=== PATIENT | female | born 1995 | race Two or more races ===

== ENCOUNTER 2020-06-13 17:02 | Emergency (ER) | payer OTHER ==
--- OUTSIDE RECORDS SUMMARY | 2020-06-13 17:05 | XMS ---
:1995 Author Organization [facility] Care Team Providers Name Role Phone DIAZ BOWERS Unavailable Unavailable ZUNASSIGNED Unavailable Unavailable ARAYA, REBECCA Unavailable Unavailable Araya, Rebecca Unavailable Unavailable Araya, Rebecca Unavailable Unavailable Araya, Rebecca Unavailable Unavailable Araya, Rebecca Unavailable Unavailable [email or web address],, [id number] Unavailable Unavailable Re-disclosure Warning The records that you are about to access may contain information from federally- assisted alcohol or drug abuse programs. If such information is present, then the following federally mandated warning applies: This information has been disclosed to you from records protected by federal confidentiality rules (42 CFR part 2). The federal rules prohibit you from making any further disclosure of this information unless further disclosure is expressly permitted by the written consent of the person to whom it pertains or as otherwise permitted by 42 CFR part 2. A general authorization for the release of medical or other information is NOT sufficient for this purpose. The Federal rules restrict any use of the information to criminally investigate or prosecute any alcohol or drug abuse patient.The records that you are about to access may contain highly sensitive health information, the redisclosure of which is protected by Article 27-F of the [facility] Public Health law. If you continue you may haveaccess to information: Regarding HIV / AIDS; Provided by facilities licensed or operated by the [facility] Office of Mental Health; or Provided by the [facility] Office for People With Developmental Disabilities. If such information is present, then the following [facility] mandated warning applies: This information has been disclosed to you from confidential records which are protected by state law. State law prohibits you from making any further disclosure of this information without the specific written consent of the person to whom it pertains, or as otherwise permitted by law. Any unauthorized further disclosure in violation of state law may result in a fine or halfway sentence or both. A general authorization for the release of medical or other information is NOT sufficient authorization for further disclosure. Family History Family Member Family Member Family Member Date of Description Data Source(s) Name Gender Status Status Unknown Female Diagnosis 03/19/2018 [facility] ([facility] 12:00:[address] [facility] EDT Center) Encounters Encounter Providers Location Date Indications Data Source(s ) Outpatient Attender: DIAZ Martinez 06/11/2020 [facility] MENLAAdmitter: 04:48:00 Medical Ce nter DIAZ EDT MENLAReferrer: DIAZ BOWERS Outpatient Attender: 06/11/2020 [facility] ZUNASSIGNEDAdmit 03:43:00 [facility] Center ter: PM EDT ZUNASSIGNEDRefer rer: [id number] ZUNASSIGNED@, Outpatient Admitter: [id number] 06/11/2020 [facility] ZUNASSIGNED@,Ref 12:00:00 Medical Center errer: [id number] AM EDT ZUNASSIGNED@, Outpatient 03/11/2020 [facility] 04:28:00 Medical Theresa PM EDT Outpatient Attender: REBECCA Martinez 03/11/2020 [facility] MEJIAAdmitter: 03:22:00 Medical Ce nter REBECCA EDT MEJIAReferrer: REBECCA ARAYA OutpatientOFFICE/OUTP Attender: [facility] 03/11/2020 [facility] ([facility] VISIT, EST Marshal 03:22:00 [facility] EDT - Center) 03/11/2020 03:22:00 PM EDT Outpatient 03/11/2020 [facility] 12:00:00 Medical Center AM EDT Outpatient Attender: REBECCA Martinez 03/02/2020 [facility] MEJIAAdmitter: 03:13:00 Medical Ce nter REBECCA PM EDT MEJIAReferrer: REBECCA ARAYA OutpatientWell Visit, Attender: Rebecca [facility] 03/02/2020 [facility] ([facility]18-39[facility] Araya 03:13:00 [facility] EDT - Center) 03/02/2020 03:13:00 PM EDT Outpatient 03/02/2020 [facility] 10:13:00 Medical Center AM EDT Outpatient 03/02/2020 [facility] 12:00:00 [facility] AM EDT Medications Medication Brand Start Product Dose Route [facility] Indications Reaction Description Data Name Date Form Instructions Instructions Source(s) multivitami multiv take 1 [facility] n tablet itamin 2020 tablet by (Elie nt 12:00: oral route [facility] 00 AM every day Medical EDT with food Center) Ibuprofen ibupro .00 ORAL active take 1 NE XTGEN 400 MG Oral fen 2020 {tbl} tablet by (S aint Tablet 400 mg 12:00: oral route [facility] ibuprofen tablet 00 AM every 4 - 6 Medical 400 mg EDT hours as Center) tablet needed Insurance Providers Payer name Policy type Policy ID Covered Covered republican's Policy P abisai / Coverage republican ID relationship to Carmichael Inf ormation type carmichael [facility]LY [facility] [id number] 600 HEALTH NON CAP K[place] W [id number] 01 [id number] 600 CARE [place] W [id number] 01 [id number] 600 CARE [place] W [id number] Problems, Conditions, and Diagnoses Code Display Name Description Problem Type Effective Data Dates Source(s) Z20.828 Contact with and CONTACT W AND Diagnosis 03/11/2020 [facility] (suspected) exposure EXPOSURE TO OTH 03:22:00 P M Lela to other viral VIRAL COMMUNICABLE EDT [facility] communicable DISEASES Center diseases Z71.82 Exercise counseling EXERCISE COUNSELING Diagnosis 020 [facility] 03:22:00 PM [facility] Z71.3 Dietary counseling DIETARY COUNSELING Diagnosis 0 [facility] and surveillance AND SURVEILLANCE 03:22:00 PM [facility] Center Z68.22 Body mass index BODY MASS INDEX Diagnosis 03/11/2020 Andrés t (BMI) 22.0-22.9, (BMI) 22.0-22.9, 03:22:00 PM [facility] adult ADULT [facility] Z03.89 Encounter for ENCNTR FOR OBS FOR Diagnosis 03/11/2020 Elie nt observation for OTH SUSPECTED 03:22:00 PM Anthony hs other suspected DISEASES AND COND EDT Id dical diseases and RULED OUT Center conditions ruled out D64.9 Anemia, unspecified ANEMIA, UNSPECIFIED Diagnosis 020 [facility] 03:22:00 PM [facility] Z11.4 Encounter for ENCOUNTER FOR Diagnosis 03/02/2020 [facility] screening for human SCREENING FOR HUMAN 03:13:0 0 PM [facility] immunodeficiency IMMUNODEFICIENCY EDT Id dical virus [HIV] VIRUS Theresa J02.9 Acute pharyngitis, ACUTE PHARYNGITIS, Diagnosis 0 [facility] unspecified UNSPECIFIED 03:13:00 PM [facility] Z00.00 Encounter for ENCNTR FOR GENERAL Diagnosis 03/02/2020 Elie nt general adult ADULT MEDICAL EXAM 03:13:00 PM [facility] medical examination W/O ABNORMAL EDT Med ical without abnormal FINDINGS Center findings Surgeries/Procedures Procedure Description Date Indications Data Source(s) OFFICE/OUTPATIENT VISIT, 03/11/2020 [facility] ([facility] EST 12:00:00 AM EDT [facility] - 03/11/2020 Theresa) 12:00:00 AM EDT Well Visit, 03/02/2020 [facility] ([facility] Est,18-39years 12:00:[address] [facility] 03/02/2020 Theresa) 12:00:00 AM EDT ROUTINE VENIPUNCTURE 03/02/2020 [facility] ([facility] 12:00:00 AM EDT [facility] - 03/02/2020 Theresa) 12:00:00 AM EDT Results ID Date Data Source [id number] 04/08/2020 06:45:00 PM EDT [facility] Name Value Range Interpretation Description Data Sup porting Code Source(s) Document(s ) SARS [facility] coronavirus 2 RNA This lab was ordered by [facility] and reported by [facility]. ID Date Data Source Urinalysis.[id number] 03/02/2020 04:06:00 PM EDT [facility] 0 Name Value Range Interpretation Description Data Sup porting Code Source(s) Document(s ) Color of Urine YELLOW <content Saint styleCode="[facility] d">Color, Medical Urine Center </content>YELL OW <content styleCode="Elzbieta lics"> (YELLOW )</content> Glucose NEGATIVE <content Saint [Mass/volume] styleCode="Brent Lela in Urine by d">Urine Medical Test strip Glucose Center </content>NEGA TIVE MG/DL<content styleCode="Elzbieta lics"> (NEGATIVE MG/DL)</conten t> UNK CLEAR <content Saint styleCode="[facility] d">Urine Medical Clarity Center </content>MARBIN R <content styleCode="Elzbieta lics"> (CLEAR )</content> UNK NEGATIVE <content Saint styleCode="Brent Lela d">Urine Medical Bilirubin Center </content>NEGA TIVE <content styleCode="Elzbieta lics"> (NEGATIVE )</content> Ketones NEGATIVE <content Saint [Mass/volume] styleCode="Brent Lela in Urine by d">Urine Medical Test strip Ketone Center </content>NEGA TIVE MG/DL<content styleCode="Elzbieta lics"> (NEGATIVE MG/DL)</conten t> Specific 1.015-1.02 <content [facility] gravity of 5 styleCode="Brent Lela Urine by Test d">Urine Medical strip Specific Center Foster </content>1.01 5 <content styleCode="Elzbieta lics"> (1.015-1.025 )</content> Hemoglobin NEGATIVE <content Saint [Presence] in styleCode="Brent Lela Urine by Test d">Urine Blood Medical strip </content>NEGA Center TIVE <content styleCode="Elzbieta lics"> (NEGATIVE )</content> Protein NEGATIVE <content [facility] [Mass/volume] styleCode="Brent Lela in Urine by d">Urine Medical Test strip Protein Center </content>NEGA TIVE MG/DL<content styleCode="Elzbieta lics"> (NEGATIVE MG/DL)</conten t> pH of Urine by 4.5-8.0 <content Saint Test strip styleCode="Brent Lela d">Urine pH Medical </content>7.5 Center <content styleCode="Elzbieta lics"> (4.5-8.0 )</content> Leukocyte NEGATIVE <content [facility] esterase styleCode="Brent Mckoys [Presence] in d">Urine Medical Urine by Test Leukocyte Center strip </content>NEGA TIVE <content styleCode="Elzbieta lics"> (NEGATIVE )</content> Nitrite NEGATIVE <content Saint [Presence] in styleCode="Brent Mckoys Urine by Test d">Urine Medical strip Nitrite Center </content>NEGA TIVE <content styleCode="Elzbieta lics"> (NEGATIVE )</content> Urobilinogen 0.2-1.0 <content Saint [Units/volume] styleCode="Brent Vogel in Urine by d">Urine Medical Test strip Urobilinogen Center </content>0.2 MG/DL<content styleCode="Elzbieta lics"> (0.2-1.0 MG/DL)</conten t> ID Date Data Source Liver 03/02/2020 04:06:[address] [facility] Profile.[id number] Name Value Range Interpretation Description Data Sup porting Code Source(s) Document(s ) Aspartate 14-36 <content Saint aminotransferase styleCode="Bold"> Anthony hs [Enzymatic Aspartate Medical activity/volume] Aminotransferase Center in Serum or Plasma (AST) </content>28 IU/L<content styleCode="Italic s"> (14-36 IU/L)</content> Alanine 7-30 <content [facility] aminotransferase styleCode="Bold"> Anthony hs [Enzymatic Alanine Medical activity/volume] Aminotransferase Center in Serum or Plasma (ALT) </content>17 IU/L<content styleCode="Italic s"> (7-30 IU/L)</content> Bilirubin.total 0.2-1.3 <content [facility] [Mass/volume] in styleCode="Bold"> Anthony hs Serum or Plasma Bilirubin Total Medical </content>0.4 Center MG/DL<content styleCode="Italic s"> (0.2-1.3 MG/DL)</content> Albumin 3.5-5.0 <content [facility] [Mass/volume] in styleCode="Bold"> Anthony hs Serum or Plasma Albumin Medical </content>4.1 Center G/DL<content styleCode="Italic s"> (3.5-5.0 G/DL)</content> Alkaline 38-126 <content [facility] phosphatase styleCode="Bold"> Lela [Enzymatic Alkaline Medical activity/volume] Phosphatase (ALP) Cente r in Serum or Plasma </content>93 IU/L<content styleCode="Italic s"> (38-126 IU/L)</content> ID Date Data Source LIPID.[id number] 03/02/2020 04:06:00 PM EDT [facility] Name Value Range Interpretation Description Data Sup porting Code Source(s) Document(s ) Cholesterol -<200 <content [facility] [Mass/volume] in styleCode="Brent Lela Serum or Plasma d">Cholesterol Medical </content>145 Center MG/DL<content styleCode="Elzbieta lics"> (-<200 MG/DL)</conten t> Triglyceride < 150 <content [facility] [Mass/volume] in styleCode="Brent Lela Serum or Plasma d">Triglycerid [facility] </content>59 MG/DL<content styleCode="Elzbieta lics"> (< 150 MG/DL)</conten t> UNK < 100 <content Saint styleCode="Brent Lela d">LDL-Cholest Medical leti Center </content>77 MG/DL<content styleCode="Elzbieta lics"> (< 100 MG/DL)</conten t> UNK > 60 Below low normal <content Saint styleCode="Brent Lela d">HDL- Medical Cholesterol Center </content>56 MG/DL L<content styleCode="Elzbieta lics"> (> 60 MG/DL)</conten t> ID Date Data Source [id number] 03/02/2020 04:06:00 PM EDT [facility] t [facility] Name Value Range Interpretation Description Data Sup porting Code Source(s) Document(s ) Thyrotropin 0.465-4. Below low normal <content Saint [Units/volume] 68 styleCode="Brent Lela in Serum or d">Thyroid Medical Plasma by Stimulating Center Detection Hormone limit <= 0.05 </content>0.32 mIU/L 7 MIU/L L<content styleCode="Elzbieta lics"> (0.465-4.68 MIU/L)</conten t> ID Date Data Source HematologyRou.[id number] 03/02/2020 04:06:00 PM EDT [facility] 0400 Name Value Range Interpretation Description Data Sup porting Code Source(s) Document(s ) Erythrocytes 4.0-5.1 Below low normal <content Saint [#/volume] in styleCode="Bold Lela Blood by ">Red Blood Medical Automated count Cell Count Center </content>3.81 MCUMM L<content styleCode="Ital ics"> (4.0-5.1 MCUMM)</content > Leukocytes 4.4-11.0 <content Saint [#/volume] in styleCode="Bold Lela Blood by ">White Blood Medical Automated count Cell Count Center </content>8.24 KCUMM<content styleCode="Ital ics"> (4.4-11.0 KCUMM)</content > Hematocrit 36.0-46. Below low normal <content Saint [Volume 0 styleCode="Bold Lela Fraction] of ">Hematocrit Medical Blood by </content>35.4 Center Automated count % L<content styleCode="Ital ics"> (36.0-46.0 %)</content> Erythrocyte mean 80.0-100 <content [facility] corpuscular .0 styleCode="Bold Lela volume [Entitic ">Mean Medical volume] by Corpuscular Center Automated count Volume </content>92.9 FL<content styleCode="Ital ics"> (80.0-100.0 FL)</content> Hemoglobin 12.3-16. Below low normal <content Saint [Mass/volume] in 0 styleCode="Bold Lela Blood ">Hemoglobin Medical </content>11.4 Center G/DL L<content styleCode="Ital ics"> (12.3-16.0 G/DL)</content> Erythrocyte mean 26.0-34. <content [facility] corpuscular 0 styleCode="Bold Lela hemoglobin ">Mean Medical [Entitic mass] Corposcular Center by Automated Hemoglobin count </content>29.9 PG<content styleCode="Ital ics"> (26.0-34.0 PG)</content> Erythrocyte 11.5-14. <content [facility] distribution 5 styleCode="Bold Lela width [Ratio] by ">Red Cell Medical Automated count Distribution Center Width </content>13.4 %<content styleCode="Ital ics"> (11.5-14.5 %)</content> Erythrocyte mean 32.0-37. <content [facility] corpuscular 0 styleCode="Bold Lela hemoglobin ">Mean Corpus. Medical concentration Hgb Center [Mass/volume] by Concentration Automated count (MCHC) </content>32.2 G/DL<content styleCode="Ital ics"> (32.0-37.0 G/DL)</content> Platelets 130-400 <content Saint [#/volume] in styleCode="Bold Lela Blood by ">Platelet Medical Automated count Count Center </content>214 KCUMM<content styleCode="Ital ics"> (130-400 KCUMM)</content > UNK 0.0 <content Saint styleCode="Bold Lela ">Nucleated Red Medical Blood Cell Center Count </content>0.00 KCUMM<content styleCode="Ital ics"> (0.0 KCUMM)</content > UNK 0 <content Saint styleCode="Bold Lela ">Nucleated Red Medical Blood Cell Center </content>0.0 /100<content styleCode="Ital ics"> (0 /100)</content> Platelet mean 8.0-11.0 <content Saint volume [Entitic styleCode="Bold [facility] volume] in Blood ">Mean Platelet Medical by Automated Volume Center count </content>11.0 FL<content styleCode="Ital ics"> (8.0-11.0 FL)</content> ID Date Data Source GFR(Creatinine).[id number] 03/02/2020 04:06:00 PM EDT [facility] 0-0400 Name Value Range Interpretation Code Description Data Debby rce(s) Supporting Document(s ) UNK > 60 <content [facility] styleCode="Bold"> Medical Cent er EGFR </content>128 GFR<content styleCode="Italic s"> (> 60 GFR)</content> ID Date Data Source CHMRSHAYANDA.[id number] 03/02/2020 04:06:00 PM EDT [facility] -0400 Name Value Range Interpretation Description Data Sup porting Code Source(s) Document(s ) UNK >= 1.0 <content Lela styleCode="Bold Medical ">AG Ratio Center </content>1.4 <content styleCode="Ital ics"> (>= 1.0 )</content> UNK 2.3-3.5 <content [facility] styleCode="Bold Medical ">Globulin Center </content>2.9 G/DL<content styleCode="Ital ics"> (2.3-3.5 G/DL)</content> UNK 4.2-5.8 <content [facility] styleCode="Bold Medical ">Hemoglobin Center A1C </content>5.6 %<content styleCode="Ital ics"> (4.2-5.8 %)</content> Protein 6.3-8.2 <content [facility] [Mass/volum styleCode="Bold Medical e] in Serum ">Total Protein Center or Plasma </content>7.0 G/DL<content styleCode="Ital ics"> (6.3-8.2 G/DL)</content> ID Date Data Source [id number] 03/02/2020 04:06:00 PM EDT [facility] Name Value Range Interpretation Description Data Sup porting Code Source(s) Document(s ) Sodium 137-145 <content Saint [Moles/volume] in styleCode="Bold"> [facility] Serum or Plasma Sodium Medical </content>137 Center MEQ/L<content styleCode="Italic s"> (137-145 MEQ/L)</content> Chloride 98-107 Above high <content Saint [Moles/volume] in normal styleCode="Bold"> [facility] Serum or Plasma Chloride Medical </content>108 Center MEQ/L H<content styleCode="Italic s"> (98-107 MEQ/L)</content> Potassium 3.5-5.3 <content Saint [Moles/volume] in styleCode="Bold"> [facility] Serum or Plasma Potassium Medical </content>3.7 Center MEQ/L<content styleCode="Italic s"> (3.5-5.3 MEQ/L)</content> Creatinine 0.5-1.3 <content [facility] [Mass/volume] in styleCode="Bold"> Anthony hs Serum or Plasma Creatinine Medical </content>0.6 Center MG/DL<content styleCode="Italic s"> (0.5-1.3 MG/DL)</content> Carbon dioxide, 22-30 <content Saint total styleCode="Bold"> Lela [Moles/volume] in Carbon Dioxide Medical Serum or Plasma </content>22 Center MEQ/L<content styleCode="Italic s"> (22-30 MEQ/L)</content> UNK 7-17 <content Saint styleCode="Bold"> Lela BUN </content>14 Medical MG/DL<content Center styleCode="Italic s"> (7-17 MG/DL)</content> Glucose 74-106 <content [facility] [Mass/volume] in styleCode="Bold"> Anthony hs Serum or Plasma Glucose Medical </content>89 Center MG/DL<content styleCode="Italic s"> (74-106 MG/DL)</content> Alanine 7-30 <content [facility] aminotransferase styleCode="Bold"> Anthony hs [Enzymatic Alanine Medical activity/volume] Aminotransferase Center in Serum or Plasma (ALT) </content>17 IU/L<content styleCode="Italic s"> (7-30 IU/L)</content> Aspartate 14-36 <content [facility] aminotransferase styleCode="Bold"> Anthony hs [Enzymatic Aspartate Medical activity/volume] Aminotransferase Center in Serum or Plasma (AST) </content>28 IU/L<content styleCode="Italic s"> (14-36 IU/L)</content> Calcium 8.4-10. <content [facility] [Mass/volume] in 2 styleCode="Bold"> Anthony hs Serum or Plasma Calcium Medical </content>8.9 Center MG/DL<content styleCode="Italic s"> (8.4-10.2 MG/DL)</content> UNK > 60 <content Saint styleCode="Bold"> Lela EGFR Medical </content>128 Center GFR<content styleCode="Italic s"> (> 60 GFR)</content> Bilirubin.total 0.2-1.3 <content [facility] [Mass/volume] in styleCode="Bold"> Anthony hs Serum or Plasma Bilirubin Total Medical </content>0.4 Center MG/DL<content styleCode="Italic s"> (0.2-1.3 MG/DL)</content> Alkaline 38-126 <content [facility] phosphatase styleCode="Bold"> Lela [Enzymatic Alkaline Medical activity/volume] Phosphatase (ALP) Cente r in Serum or Plasma </content>93 IU/L<content styleCode="Italic s"> (38-126 IU/L)</content> Albumin 3.5-5.0 <content [facility] [Mass/volume] in styleCode="Bold"> Anthony hs Serum or Plasma Albumin Medical </content>4.1 Center G/DL<content styleCode="Italic s"> (3.5-5.0 G/DL)</content> ID Date Data Source [id number] 03/01/2020 12:00:00 AM EDT [facility] Name Value Range Interpretation Code Description Data [facility] Supporting Document(s ) 2019-nCoV [facility] RNA XXX BLAIR+probe- Imp This lab was ordered by [facility] and reported by [employer] ID Date Data Source [id number] 02/20/2020 12:00:00 AM EDT [facility] Name Value Range Interpretation Code Description Data Debby rce(s) Supporting Document(s ) 2019-nCoV [facility] RNA XXX BLAIR+probe- Imp This lab was ordered by [facility] and reported by [employer] Procedure Social History Code Duration Value Status Description Data Source(s ) Caffeine Use 03/11/2020 completed [facility] (Elie nt Details 12:00:00 AM [facility]) 03/11/2020 Current completed Current [facility] ([facility] 12:00:00 AM non-smoker non-smoker [facility]) Alcohol Use 03/11/2020 beer & liquor 5 completed beer & liquor 5 [facility] ([facility] Details 12:00:00 AM drinks drinks [facility]) Smoking 03/11/2020 Unknown if ever completed Unknown if ever [facility] ([facility] 12:00:00 AM smoked smoked [facility]) Vital Signs ID Date Data Source UNK Name Value Range Interpretation Code Description Data Source(s) Oxygen saturation 100 % 100 % [facility] ([facility] in Arterial blood [facility] by Pulse oximetry Center) Body mass index 22.33 kg/m2 22.33 kg/m2 [facility] ([facility] (BMI) [Ratio] [facility]) Respiratory rate 18 /min 18 /min [facility] ([facility]) Body temperature 36.61 Thalia 36.61 Thalia [facility] ([facility]) Heart rate 66 /min 66 /min [facility] ([facility]) Diastolic blood 68 mm[Hg] 68 mm[Hg] [facility] ( [facility] pressure [facility]) Systolic blood 103 mm[Hg] 103 mm[Hg] [facility] (S aint pressure [facility]) Body weight 60.872 kg 60.872 kg [facility] ([facility]) Body height 165.10 cm 165.10 cm [facility] ([facility]) Oxygen saturation 99 % 99 % [facility] ([facility] in Arterial blood [facility] by Pulse oximetry Theresa) Body mass index 22.80 kg/m2 22.80 kg/m2 [facility] ([facility] (BMI) [Ratio] [facility]) Respiratory rate 20 /min 20 /min [facility] ([facility]) Body temperature 37.22 Thalia 37.22 Thalia [facility] ([facility]) Heart rate 72 /min 72 /min [facility] ([facility]) Diastolic blood 69 mm[Hg] 69 mm[Hg] [facility] ( [facility] pressure [facility]) Systolic blood 111 mm[Hg] 111 mm[Hg] [facility] ([facility]) Body weight 62.142 kg 62.142 kg [facility] ([facility]) Body height 165.10 cm 165.10 cm [facility] ([facility]) Patient Treatment Plan of Care Planned Activity Planned Date Details Description Data Source (s) multivitamin tablet [facility] Ibuprofen 400 MG Oral 03/02/2020 12:00:00 [facility] ([facility])
--- NOTE | 2020-06-13 17:29 | TELE ---
HPI Do you have fever,cough or shortness of breath?: No - General Reason For Visit: COVID-19 testing Time Seen by Provider: 06/13/20 17:26 History Source: Patient (Asymptomatic. 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) Exam Limitations: No Limitations - History of Present Illness 06/13/20 17:26 CONSTITUTIONAL: Absent: fever, chills, diaphoresis, generalized weakness, malaise, loss of appetite HEENT: Absent: rhinorrhea, nasal congestion, throat pain, throat swelling, difficulty swallowing, mouth swelling, ear pain, eye pain, visual changes CARDIOVASCULAR: Absent: chest pain, loss of consciousness, palpitations, irregular heart rate, peripheral edema RESPIRATORY: Absent: cough, shortness of breath, dyspnea with exertion, orthopnea, wheezing, stridor, hemoptysis GASTROINTESTINAL: Absent: abdominal pain, abdominal distension, nausea, vomiting, diarrhea SKIN: Absent: rash, itching, pallor NEUROLOGIC: Absent: headache, focal weakness or paresthesias, dizziness, unsteady gait, seizure, mental status changes, bladder or bowel incontinence PSYCHIATRIC: Absent: anxiety, depression, suicidal or homicidal ideation, hallucinations. GENERAL: Well developed, well nourished. Awake and alert. No acute distress. HEENT: Normocephalic, atraumatic. PERRLA, EOMI. NECK: Supple. Full ROM. PULMONARY: No evidence of respiratory distress. EXTREMITIES: No cyanosis. SKIN: Warm and dry. Normal capillary refill. No rashes. No jaundice. NEUROLOGICAL: Alert, awake, appropriate. PSYCHIATRIC: Cooperative. Good eye contact. Appropriate mood and affect. Past History - Medical History Allergies/Adverse Reactions: Allergies Allergy/AdvReac Type Severity Reaction Status Date / Time No Known Drug Allergies Allergy Verified 06/28/15 18:33 Home Medications: Ambulatory Orders Mupirocin Ointment [Bactroban 2% Ointment -] 1 applic TP BID #1 tube 06/28/15 Asthma: No Cancer: No Cardiac Disorders: No Diabetes: No HTN: No Seizures: No Thyroid Disease: No - Surgical History Appendectomy: Yes - Psycho-Social/Smoking History Smoking Status: No Smoking History: Never smoked Number of Cigarettes Smoked Daily: 0 - Medical Decision Making 06/13/20 17:27 A/P: 24-year-old woman denies medical history requesting COVID-19 testing 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 As a result, errors may occur in the public health inspector process. Effort has been made to correct all grammatical and public health inspector error, but some may have been missed which may produce sporadic inaccurate public health inspector or nonsensical phrases. Discharge Diagnosis at time of Disposition: Encounter by telehealth for suspected COVID-19 - Referrals - Patient Instructions Additional Discharge Instructions: You were tested for COVID today. Please isolate yourself until your test results come back. Guidance has been provided in your discharge papers You should receive a call within 24 to 48 hours from our department with your results. Thank you for using our telehealth service today! - Discharge Disposition: HOME Condition at time of Disposition: Stable
== END 2020-06-13 17:29 | disposition home or self-care (01) ==
LOC: JVIRT 17:02
DX: Z03.818 Encounter for observation for suspected exposure to other biological agents ruled out (principal)
CPT/HCPCS: C9803; Q3014-GT; U0003

== ENCOUNTER 2020-06-13 17:16 | Emergency (ER) | payer OTHER ==
--- OUTSIDE RECORDS SUMMARY | 2020-06-13 17:21 | XMS ---
:1995 Author Organization [facility] Care Team Providers Name Role Phone DIAZ BOWERS Unavailable Unavailable ZUNASSIGNED Unavailable Unavailable ARAYA, REBECCA Unavailable Unavailable Araya, Rebecca Unavailable Unavailable Araya, Rebecca Unavailable Unavailable Araya, Rebecca Unavailable Unavailable Araya, Rebecca Unavailable Unavailable [email or web address],, [id number] Unavailable Unavailable Re-disclosure Warning The records that [...] is protected by Article 27-F of the [facility] Public Health law. If you continue you may haveaccess to information: Regarding HIV / AIDS; Provided by facilities licensed or operated by the [facility] Office of Mental Health; or Provided by the [facility] Office for People With Developmental Disabilities. If such information is present, then the following [facility] mandated warning applies: This information has [...] law may result in a fine or long term sentence or both. A general authorization for the release of medical or other information is NOT sufficient authorization for further disclosure. Family History Family Member Family Member Family Member Date of Description Data Source(s) Name Gender Status Status Unknown [facility] 12:00:00 AM Health system EDT Center) Encounters Encounter Providers Location Date Indications Data Source(s ) Outpatient Attender: DIAZ Martinez 06/11/2020 [facility] MENLAAdmitter: 04:48:00 Medical Ce nter DIAZ EDT MENLAReferrer: DIAZ BOWERS Outpatient Attender: 06/11/2020 [facility] ZUNASSIGNEDAdmit 03:43:00 [facility] Center ter: PM EDT ZUNASSIGNEDRefer rer: [id number] [email or web address]@, Outpatient Admitter: [id number] 06/11/2020 [facility] ZUNASSIGNED@,Ref 12:00:00 Medical Center errer: [id number] AM EDT [email or web address]@, Outpatient 03/11/2020 [facility] 04:28:00 Medical [place] PM EDT Outpatient Attender: REBECCA Martinez 03/11/2020 [facility] MEJIAAdmitter: 03:22:00 Medical Ce nter REBECCA EDT MEJIAReferrer: REBECCA ARAYA OutpatientOFFICE/OUTP Attender: [facility] V[facility], EST Marshal 03:22:00 [facility] EDT - Center) 03/11/2020 03:22:00 PM EDT Outpatient 03/11/2020 [facility] 12:00:00 [facility] Center AM EDT Outpatient Attender: REBECCA Martinez 03/02/2020 [facility] MEJIAAdmitter: 03:13:00 Medical Ce nter REBECCA PM EDT MEJIAReferrer: REBECCA ARAYA OutpatientWell Visit, Attender: Rebecca [facility] 03/02/2020 [facility] ([facility]18-39[facility] Araya 03:13:00 [facility] EDT - Center) 03/02/2020 03:13:00 PM EDT Outpatient 03/02/2020 [facility] 10:13:00 [facility] Center AM EDT Outpatient 03/02/2020 [facility] 12:00:00 [facility] Center AM EDT Medications Medication Brand Start Product Dose Route Administrative Pharmacy [facility] Indications Reaction Description Data Name Date Form Instructions Instructions Source(s) multivitami multiv take 1 NEXTGEN n tablet itamin 2020 tablet by (Elie nt 12:00: oral route [facility] 00 AM every day Medical EDT with food Center) Ibuprofen ibupro .00 ORAL active take 1 NE XTGEN 400 MG Oral fen 2020 {tbl} tablet by (S aint Tablet 400 mg 12:00: oral route [facility] ibuprofen tablet 00 AM every 4 - 6 Medical 400 mg EDT hours as Center) tablet needed Insurance Providers Payer name Policy type Policy ID Covered Covered republican's Policy P abisai / Coverage republican ID relationship to Carmichael Inf ormation type carmichael [facility] [id number] 600 HEALTH NON CAP [place] W [id number] 01 [id number] 600 CARE [place] W [id number] 01 [id number] 600 CARE [place] W [id number] 01 [id number] Problems, Conditions, and Diagnoses Code Display Name Description Problem Type Effective Data Dates Source(s) Z20.828 Contact with and CONTACT W AND Diagnosis 03/11/2020 [facility] (suspected) exposure EXPOSURE TO OTH 03:22:00 P M Lela to other viral VIRAL COMMUNICABLE EDT [facility] communicable DISEASES Center diseases Z71.82 Exercise counseling EXERCISE COUNSELING Diagnosis 020 [facility] 03:22:00 PM [facility] Z71.3 Dietary counseling DIETARY COUNSELING Diagnosis 0 [facility] and surveillance AND SURVEILLANCE 03:22:[address] [facility] Z68.22 Body mass index BODY MASS INDEX Diagnosis 03/11/2020 Andrés t (BMI) 22.0-22.9, (BMI) 22.0-22.9, 03:22:00 PM [facility] adult ADULT [facility] Z03.89 Encounter for ENCNTR FOR OBS FOR Diagnosis 03/11/2020 Elie nt observation for OTH SUSPECTED 03:22:00 PM Anthony hs other suspected DISEASES AND COND EDT Mt dical diseases and RULED OUT Center conditions ruled out D64.9 Anemia, unspecified ANEMIA, UNSPECIFIED Diagnosis 020 [facility] 03:22:00 PM [facility] Z11.4 Encounter for ENCOUNTER FOR Diagnosis 03/02/2020 [facility] screening for human SCREENING FOR HUMAN 03:13:0 0 PM [facility] immunodeficiency IMMUNODEFICIENCY EDT Mt dical virus [HIV] VIRUS [place] J02.9 Acute pharyngitis, ACUTE PHARYNGITIS, Diagnosis 0 [facility] unspecified UNSPECIFIED 03:13:00 PM [facility] Z00.00 Encounter for ENCNTR FOR GENERAL Diagnosis 03/02/2020 Elie nt general adult ADULT MEDICAL EXAM 03:13:00 PM [facility] medical examination W/O ABNORMAL EDT Med ical without abnormal FINDINGS Center findings Surgeries/Procedures Procedure Description Date Indications Data Source(s) OFFICE/OUTPATIENT VISIT, 03/11/2020 [facility] ([facility] EST 12:00:00 AM EDT [facility] - 03/11/2020 [place]) 12:00:00 AM EDT Well Visit, 03/02/2020 [facility] ([facility] Est,18-39years 12:00:00 AM EDT [facility] 03/02/2020 [place]) 12:00:00 AM EDT ROUTINE VENIPUNCTURE 03/02/2020 [facility] ([facility] 12:00:00 AM EDT [facility] - 03/02/2020 [place]) 12:00:00 AM EDT Results ID Date Data Source [id number] 04/08/2020 06:45:00 PM EDT [facility] Name Value Range Interpretation Description Data Sup porting Code Source(s) Document(s ) SARS [facility] coronavirus 2 RNA This lab was ordered by [facility] and reported by [facility]. ID Date Data Source Urinalysis.[id number] 03/02/2020 04:06:00 PM EDT [facility] 0 Name Value Range Interpretation Description Data Sup porting Code Source(s) Document(s ) Color of Urine YELLOW <content [facility] styleCode[facility]">Color, Medical Urine Center </content>YELL OW <content styleCode="Elzbieta lics"> (YELLOW )</content> Glucose NEGATIVE <content [facility] [Mass/volume] styleCode="Brent Lela in Urine by d">Urine Medical Test strip Glucose Center </content>NEGA TIVE MG/DL<content styleCode="Elzbieta lics"> (NEGATIVE MG/DL)</conten t> UNK CLEAR <content [facility] styleCode="[facility]">Urine Medical Clarity Center </content>MARBIN R <content [...] by Test d">Urine Medical strip Specific Center [place] </content>1.01 5 <content styleCode="Elzbieta lics"> (1.015-1.025 )</content> [...] Data Source Liver 03/02/2020 04:06:00 PM EDT [facility] Profile.[id number] Name Value Range Interpretation Description Data Sup [...] s"> (38-126 IU/L)</content> ID Date Data Source [id number] 03/02/2020 04:06:00 PM EDT [facility] Name Value Range Interpretation Description Data Sup porting Code Source(s) Document(s ) Cholesterol -<200 <content [facility] [Mass/volume] in styleCode="Brent Lela Serum or Plasma d">Cholesterol Medical </content>145 Center MG/DL<content styleCode="Elzbieta lics"> (-<200 MG/DL)</conten t> Triglyceride < 150 <content [facility] [Mass/volume] in styleCode="Brent Lela Serum or Plasma d">Triglycerid [facility] </content>59 MG/DL<content styleCode="Elzbieta lics"> (< 150 MG/DL)</conten t> UNK < 100 <content Saint styleCode="Brent Lela d">LDL-Cholest Medical leti Center </content>77 MG/DL<content styleCode="Elzbieta lics"> (< 100 MG/DL)</conten t> UNK > 60 Below low normal <content Saint styleCode="Brent Lela d">HDL- Medical Cholesterol Center </content>56 MG/DL L<content styleCode="Elzbieta lics"> (> 60 MG/DL)</conten t> ID Date Data Source Hormones.[id number] 03/02/2020 04:06:00 PM EDT [facility] t [facility] Name Value Range Interpretation Description Data Sup porting Code Source(s) Document(s ) Thyrotropin 0.465-4. Below low normal <content Saint [Units/volume] 68 styleCode="Brent Lela in Serum or d">Thyroid Medical Plasma by Stimulating Center Detection Hormone limit <= 0.05 </content>0.32 mIU/L 7 MIU/L L<content styleCode="Elzbieta lics"> (0.465-4.68 MIU/L)</conten t> ID Date Data Source HematologyRou.[id number] 03/02/2020 04:06:00 PM EDT [facility] 0400 Name Value Range Interpretation Description Data [...] mean 8.0-11.0 <content Saint volume [Entitic styleCode="Bold [facility] volume] in Blood ">Mean Platelet Medical by Automated Volume Center count </content>11.0 FL<content styleCode="Ital ics"> (8.0-11.0 FL)</content> ID Date Data Source GFR(Creatinine).[id number] 03/02/2020 04:06:00 PM EDT [facility] 0-0400 Name Value Range Interpretation Code Description Data Debby rce(s) Supporting Document(s ) UNK > 60 <content [facility] styleCode="Bold"> Medical Cent er EGFR </content>128 GFR<content styleCode="Italic s"> (> 60 GFR)</content> ID Date Data Source CHMRSHAYANDA.[id number] 03/02/2020 04:06:00 PM EDT [facility] -0400 Name Value Range Interpretation Description Data Sup porting Code Source(s) Document(s ) UNK >= 1.0 <content Lela styleCode="Bold Medical ">AG Ratio Center </content>1.4 <content styleCode="Ital ics"> (>= 1.0 )</content> UNK 2.3-3.5 <content [facility] styleCode="Bold Medical ">Globulin Center </content>2.9 G/DL<content styleCode="Ital ics"> (2.3-3.5 G/DL)</content> UNK 4.2-5.8 <content [facility] styleCode="Bold Medical ">Hemoglobin Center A1C </content>5.6 %<content styleCode="Ital ics"> (4.2-5.8 %)</content> Protein 6.3-8.2 <content [facility] [Mass/volum styleCode="Bold Medical e] in Serum ">Total Protein Center or Plasma </content>7.0 G/DL<content styleCode="Ital ics"> (6.3-8.2 G/DL)</content> ID Date Data Source [id number] 03/02/2020 04:06:00 PM EDT [facility] Name Value Range Interpretation Description Data Sup porting Code Source(s) Document(s ) Sodium 137-145 <content [facility] [Moles/volume] in styleCode="Bold"> [facility] Serum or Plasma Sodium Medical </content>137 Center MEQ/L<content styleCode="Italic s"> (137-145 MEQ/L)</content> Chloride 98-107 Above high <content [facility] [Moles/volume] in normal styleCode="Bold"> [facility] Serum or Plasma Chloride Medical </content>108 Center MEQ/L H<content styleCode="Italic s"> (98-107 MEQ/L)</content> Potassium 3.5-5.3 <content [facility] [Moles/volume] in styleCode="Bold"> [facility] Serum or Plasma Potassium Medical </content>3.7 Center [...] s"> (3.5-5.0 G/DL)</content> ID Date Data Source [id number] 03/01/2020 12:00:00 AM EDT [facility] Name Value Range Interpretation Code Description [facility] Supporting Document(s ) 2019-nCoV [facility] RNA XXX BLAIR+probe- Imp This lab was ordered by [facility] ONEAL and reported by [employer] ID Date Data Source [id number] 02/20/2020 12:00:00 AM EDT [facility] Name Value Range Interpretation Code Description Data Debby rce(s) Supporting Document(s ) 2019-nCoV [facility] RNA XXX BLAIR+probe- Imp This lab was ordered by [facility] ONEAL and reported by [employer] Procedure Social History Code Duration Value Status Description Data Source(s ) Caffeine Use 03/11/2020 completed [facility] (Elie nt Details 12:00:00 AM [facility]) 03/11/2020 Current completed Current [facility] ([facility] 12:00:00 AM non-smoker non-smoker [facility]) Alcohol Use 03/11/2020 beer & liquor 5 completed beer & liquor 5 [facility] ([facility] Details 12:00:00 AM drinks drinks [facility]) Smoking 03/11/2020 Unknown if ever completed Unknown if ever [facility] ([facility] 12:00:00 AM smoked smoked [facility]) Vital Signs ID Date Data Source UNK Name Value Range Interpretation Code Description Data Source(s) Oxygen saturation 100 % 100 % [facility] ([facility] in Arterial blood [facility] by Pulse oximetry Center) Body mass index 22.33 kg/m2 22.33 kg/m2 [facility] ([facility] (BMI) [Ratio] [facility]) Respiratory rate 18 /min 18 /min [facility] ([facility]) Body temperature 36.61 Thalia 36.61 Thalia [facility] ([facility]) Heart rate 66 /min 66 /min [facility] ([facility]) Diastolic blood 68 mm[Hg] 68 mm[Hg] [facility] ( [facility] pressure [facility]) Systolic blood 103 mm[Hg] 103 mm[Hg] [facility] (S aint pressure [facility]) Body weight 60.872 kg 60.872 kg [facility] ([facility]) Body height 165.10 cm 165.10 cm [facility] ([facility]) Oxygen saturation 99 % 99 % [facility] ([facility] in Arterial blood [facility] by Pulse oximetry [place]) Body mass index 22.80 kg/m2 22.80 kg/m2 [facility] ([facility] (BMI) [Ratio] [facility]) Respiratory rate 20 /min 20 /min [facility] ([facility]) Body temperature 37.22 Thalia 37.22 Thalia [facility] ([facility]) Heart rate 72 /min 72 /min [facility] ([facility]) Diastolic blood 69 mm[Hg] 69 mm[Hg] [facility] ( [facility] pressure [facility]) Systolic blood 111 mm[Hg] 111 mm[Hg] [facility] ([facility]) Body weight 62.142 kg 62.142 kg [facility] ([facility]) Body height 165.10 cm 165.10 cm [facility] ([facility]) Patient Treatment Plan of Care Planned Activity Planned Date Details Description Data Source (s) [facility]amin [facility] Ibuprofen 400 MG Oral 03/02/2020 12:00:00 [facility] ([facility])
== END 2020-06-14 10:25 | disposition home or self-care (01) ==
LOC: JVIRT 17:16
DX: Z03.818 Encounter for observation for suspected exposure to other biological agents ruled out (principal)
CPT/HCPCS: Q3014-GT

== ENCOUNTER 2020-07-29 12:51 | Emergency (ER) | payer OTHER | END 2020-07-29 16:24 | disposition home or self-care (01) | LOC: JVIRT 12:51 | DX: U07.1 COVID-19 (principal) | CPT/HCPCS: C9803; G2012-GT; U0003 ==